=== PATIENT | female | born 1965 | race African-American/Black ===

== ENCOUNTER 2024-07-16 09:12 | Day surgery (SDC) | payer OTHER, SELFPAY ==
--- NOTE | 2024-07-15 09:45 | HO.ANESPROP2 ---
Documented by User: Palma Dwyer NP 07/15/24 09:45 HPI - Anesthesia Eval Consult details Narrative: 59yo F for Bilateral lateral Rectus Eye Muscle Recession,Right Superior Rectus Recession Medically optimized [facility] Past Medical History Medical History (Updated 07/14/24 @ 11:28 by Michelle Cruz RN) Patellofemoral arthralgia of both knees SEDA (obstructive sleep apnea) Migraine GERD (gastroesophageal reflux disease) Gastric ulcer Fatty liver Surgical History Surgical History (Updated 07/14/24 @ 11:28 by Michelle Cruz RN) H/O colonoscopy Social History Social History (Updated 07/14/24 @ 11:30 by Michelle Cruz RN) Patient Tobacco Use Status: Never used Tobacco Use of substances other than those prescribed or required for medical reasons: No Are you DNR?: No Advance Directives: No Advance Directives Information Provided: Yes Meds Allergies Allergy/AdvReac Type Severity Reaction Status Date / Time erythromycin base Allergy Unknown Unknown Verified 07/16/24 10:12 Home Medications ?Medication ?Instructions ?Recorded ?Confirmed ?Last Taken ?Type epinephrine 0.3 mg/0.3 mL 0.3 mg IM Q10M PRN Anaphylaxis 07/14/24 07/14/24 Unknown History injection, auto-injector (EpiPen 2-Chema) fluticasone propionate 50 1 spray intranasal DAILY 07/14/24 07/14/24 Unknown History mcg/actuation nasal spray,suspension loratadine 10 mg tablet 10 mg PO DAILY 07/14/24 07/14/24 Unknown History omeprazole 20 mg tablet,delayed 20 mg PO DAILY 07/14/24 07/14/24 Unknown History release Exam Height,Weight and Vital Signs: Weight 97.239 kg Assessment and Plan Assessment Anesthesia Assessment: Chart Reviewed Documented by User: Dixie Hernandez MD 07/16/24 11:24 [facility] Past Medical History Medical History (Updated 07/14/24 @ 11:28 by Michelle Cruz RN) Patellofemoral arthralgia of both knees SEDA (obstructive sleep apnea) Migraine GERD (gastroesophageal reflux disease) Gastric ulcer Fatty liver Family History Family history of problems with anesthesia: No Surgical History Surgical History (Updated 07/14/24 @ 11:28 by Michelle Cruz RN) H/O colonoscopy History of Problems with Anesthesia: No Social History Social History (Updated 07/14/24 @ 11:30 by Michelle Cruz RN) Patient Tobacco Use Status: Never used Tobacco Use of substances other than those prescribed or required for medical reasons: No Are you DNR?: No Advance Directives: No Advance Directives Information Provided: Yes Meds Allergies Allergy/AdvReac Type Severity Reaction Status Date / Time erythromycin base Allergy Unknown Unknown Verified 07/16/24 10:12 Home Medications ?Medication ?Instructions ?Recorded ?Confirmed ?Last Taken ?Type epinephrine 0.3 mg/0.3 mL 0.3 mg IM Q10M PRN Anaphylaxis 07/14/24 07/14/24 Unknown History injection, auto-injector (EpiPen 2-Chema) fluticasone propionate 50 1 spray intranasal DAILY 07/14/24 07/14/24 Unknown History mcg/actuation nasal spray,suspension loratadine 10 mg tablet 10 mg PO DAILY 07/14/24 07/14/24 Unknown History omeprazole 20 mg tablet,delayed 20 mg PO DAILY 07/14/24 07/14/24 Unknown History release Exam Airway Mallampati Class: II TM Dist: >3cm Neck ROM: Full Heart: rrr Lungs: cta Assessment and Plan Assessment Anesthesia Assessment: Anesthesia Plan Discussed Final Anesthetic Review Family History of Problems with Anesthesia: No History of Problems with Anesthesia: No NPO: Yes ASA Class: II Final Preanesthetic Review: No Changes in Pt Med Stat, Meds/Allgs Chart Reviewed and Consent Obtained/Reviewed Patient Risk: Low Procedure Risk: Low Anesthetic Plan Anesthetic Plan: GA Disposition: Standard PACU
[2024-07-16] VITALS (7 sets, daily range): BP systolic 115–140; BP diastolic 69–97; PULSE 73–104; RESP 14–16; TEMP 36.1–36.2; O2SAT 97–100; BMI 37.7
[2024-07-16] MEDS: Lactated Ringers 1,000 ML 100 ML IVCONT (10:42)
--- NOTE | 2024-07-16 13:24 | HO.OPHTHAL ---
Ophthalmology Operative Note Date of Service: 07/16/24 Narrative: Diagnoses 1. Exotropia 2. Right hypertropia. Procedures 1. Bilateral lateral rectus recessions of 7 mm. 2. Recession of right superior rectus [address] Okeefe. Anesthesia general. Complications none. The patient was brought to the operating room placed under general anesthesia. The eyes were prepped and draped in the usual sterile ophthalmic fashion. A lid speculum was placed in the right eye and a peritomy was created around the lateral and superior rectus muscles. The lateral rectus was hooked and secured with a double-armed Vicryl suture. It was disinserted from the globe and reattached to a position 7 mm behind the original insertion. The superior rectus muscle was then hooked and secured with a double-armed Vicryl suture. The muscle was disinserted from the globe and reattached to a position 2 mm behind the original insertion. Conjunctiva was closed with interrupted Vicryl sutures. An identical procedure was then performed on the lateral rectus muscle of the left eye. The patient was then awoken from general anesthesia and discharged to postoperative recovery in good condition.
[2024-07-16] MEDS: Acetaminophen 1,000 MG/100 ML PIGGYBACK 400 MG IV (14:03)
== END 2024-07-16 14:46 | disposition home or self-care (01) ==
PROVIDERS: PCP Nurse Practitioner Primary Care; Visit Provider Ophthalmology
PROC: (CPT 67311; principal; 2024-07-16 11:30)
DX: H53.2 Diplopia (principal); H50.10 Unspecified exotropia; H50.21 Vertical strabismus, right eye; G47.33 Obstructive sleep apnea (adult) (pediatric)
CPT/HCPCS: 67311; 67314; J0131; J2003; J2250; J2371; J2704; J3010